=== PATIENT | female | born 1990 ===

== ENCOUNTER 2016-11-28 17:45 | Emergency (ER) | payer MEDICAID ==
[2016-11-28 18:10] VITALS: BMI 26.4
[2016-11-28 18:12] VITALS: BP 103/61; PULSE 58; RESP 18; TEMP 98.8; O2SAT 99
== END 2016-11-28 18:09 | disposition left against medical advice (07) ==
LOC: C.ER 17:45
DX: R10.31 Right lower quadrant pain (principal); Z02.9 Encounter for administrative examinations, unspecified